=== PATIENT | male | born 1975 | race African-American/Black ===

== ENCOUNTER 2022-07-16 15:37 | Inpatient (IN) | payer OTHER ==
[2022-07-16 18:34] VITALS: BMI 25.7
[2022-07-16] MEDS ORDERED: MAGNESIUM HYDROX 2400MG/30ML ORAL SUSPENSION 30 ML CUP PO PRN (19:14)
[2022-07-16] MEDS ORDERED: MAG HYDROX/AL HYDROX/SIMETH 30 ML UNIT-DOSE CUP PO PRN (19:14)
[2022-07-16] MEDS ORDERED: BISMUTH SUBSALICYLATE 524 MG/30 ML PO PRN (19:14)
[2022-07-16] MEDS ORDERED: IBUPROFEN 600 MG TABLET (FP) PO PRN (19:14)
[2022-07-16] MEDS ORDERED: NICOTINE 10 MG CARTRIDGE (INHALER) IH PRN (19:14)
[2022-07-16] MEDS ORDERED: LORazepam 1 MG TABLET PO PRN (19:14)
[2022-07-16] MEDS ORDERED: NALOXONE HCL (KLOXXADO) 8 MG SPRAY NS PRN (19:14)
[2022-07-16] MEDS ORDERED: cloNIDine HCL 0.1 MG TABLET PO PRN (19:14)
[2022-07-16] MEDS ORDERED: NICOTINE POLACRILEX 2 MG GUM BUC PRN (19:14)
[2022-07-16] MEDS ORDERED: MAGNESIUM CITRATE 300 ML BOTTLE PO PRN (19:14)
[2022-07-16] MEDS ORDERED: BENZOCAINE/MENTHOL (CHLORASEPTIC ) LOZENGE MM PRN (19:14)
[2022-07-16] MEDS ORDERED: LOPERAMIDE HCL 2 MG CAPSULE PO PRN (19:14)
[2022-07-16] MEDS ORDERED: ACETAMINOPHEN 325 MG TABLET (FP) PO PRN ×2 (19:14)
[2022-07-16] MEDS ORDERED: IBUPROFEN 400 MG TABLET (FP) PO PRN (19:14)
[2022-07-16] MEDS ORDERED: methaDONE HCL 10 MG TABLET (FOR DETOX USE ONLY) PO ONE (20:30)
[2022-07-16] MEDS: MELATONIN 5 MG TABLETS PO SCH (22:08)
[2022-07-16] MEDS: THIAMINE HCL 100 MG TABLET (FP) PO SCH (22:08)
[2022-07-16] MEDS: LORazepam 2 MG TABLET PO SCH (22:09)
[2022-07-17] MEDS: LORazepam 2 MG TABLET PO SCH ×4 (05:29→22:10)
[2022-07-17] MEDS: PRENATAL VITAMINS W/ FOLIC ACID TABLET (FP) PO SCH (10:06)
[2022-07-17] MEDS: NICOTINE 21 MG/24 HOURS TOPICAL PATCH TD SCH (10:06)
[2022-07-17 12:54] LABS: HEMATOCRIT 41.1 % (35.4-49); HEMOGLOBIN 13.8 GM/dL (11.7-16.9); MCH 29.9 pg (25.7-33.7); MCHC 33.6 g/dl (32.0-35.9); MEAN CELL VOLUME 88.8 fl (80-96); MEAN PLT VOLUME 8.7 fl (7.5-11.1); PLATELET COUNT 205 10^3/uL (134-434); RBC 4.64 M/mm3 (4.00-5.60); WHITE BLOOD COUNT 8.8 K/mm3 (4.0-10.0)
[2022-07-17 13:06] LABS: CALCIUM 9.4 mg/dL (8.5-10.1)
[2022-07-17 13:07] LABS: ALBUMIN 3.7 g/dl (3.4-5.0)
[2022-07-17 13:10] LABS: CREATININE 0.8 mg/dL (0.55-1.3)
[2022-07-17 13:11] LABS: TOT PROT 7.2 g/dl (6.4-8.2)
[2022-07-17 13:12] LABS: BILIRUBIN,TOTAL 0.6 mg/dL (0.2-1)
[2022-07-17] MEDS: MELATONIN 5 MG TABLETS PO SCH (22:10)
[2022-07-17] MEDS: THIAMINE HCL 100 MG TABLET (FP) PO SCH (22:10)
[2022-07-18] MEDS: LORazepam 1 MG TABLET PO SCH ×4 (05:31→22:19)
[2022-07-18] MEDS ORDERED: methaDONE HCL 10 MG TABLET (FOR DETOX USE ONLY) PO ONE (10:00)
[2022-07-18] MEDS: NICOTINE 21 MG/24 HOURS TOPICAL PATCH TD SCH (10:09)
[2022-07-18] MEDS: PRENATAL VITAMINS W/ FOLIC ACID TABLET (FP) PO SCH (10:09)
[2022-07-18 18:11] VITALS: RESP 18
[2022-07-18] MEDS: THIAMINE HCL 100 MG TABLET (FP) PO SCH (22:19)
[2022-07-18] MEDS: MELATONIN 5 MG TABLETS PO SCH (22:20)
[2022-07-19] MEDS ORDERED: LORazepam 0.5 MG TABLET PO PRN
[2022-07-19] MEDS ORDERED: LORazepam 0.5 MG TABLET PO SCH (05:00)
[2022-07-19 06:09] VITALS: BP 124/75; TEMP 98.7
[2022-07-19 09:18] VITALS: PULSE 64
[2022-07-20] MEDS ORDERED: LORazepam 0.5 MG TABLET PO ONE (05:00)
[2022-07-20] MEDS ORDERED: methaDONE HCL 10 MG TABLET (FOR DETOX USE ONLY) PO ONE (10:00)
== END 2022-07-19 09:20 | disposition left against medical advice (07) | DRG 770 ==
LOC: YASAS 15:37 → Y6N 20:00
PROVIDERS: ADMIT Allergy & Immunology; ATTEND Surgery
PROC: HZ2ZZZZ Detoxification Services for Substance Abuse Treatment (ICD-10-PCS; principal; 2022-07-16)
DX: F11.23 Opioid dependence with withdrawal (principal); F10.230 Alcohol dependence with withdrawal, uncomplicated; F16.10 Hallucinogen abuse, uncomplicated; F17.210 Nicotine dependence, cigarettes, uncomplicated; Z86.69 Personal history of other diseases of the nervous system and sense organs
CPT/HCPCS: 36415; 80053; 85027; 86780; 87811; C9803-CS; U0003; U0005